=== PATIENT | male | born 1995 | race Caucasian/White ===

== ENCOUNTER 2018-10-01 11:16 | Emergency (ER) | payer MEDICAID ==
[~2018-10-01] VITALS: Ht 177.8 cm; Wt 77.3 kg
[2018-10-01] MEDS ORDERED: LIDOCAINE 1% 10 ML VIAL INJ ONE (12:15)
[2018-10-01 13:25] VITALS: BP 118/67
== END 2018-10-01 13:39 | disposition home or self-care (01) ==
LOC: EMS 11:17
DX: S01.111A Laceration without foreign body of right eyelid and periocular area, initial encounter (principal); W01.0XXA Fall on same level from slipping, tripping and stumbling without subsequent striking against object, initial encounter; Y93.89 Activity, other specified; Y92.89 Other specified places as the place of occurrence of the external cause; Y99.8 Other external cause status
CPT/HCPCS: 12011; 99283; J3490

== ENCOUNTER 2018-10-06 21:12 | Emergency (ER) | payer MEDICAID | END 2018-10-06 21:20 | disposition left against medical advice (07) | LOC: EMS 21:12 | DX: Z48.02 Encounter for removal of sutures (principal); Z53.21 Procedure and treatment not carried out due to patient leaving prior to being seen by health care provider ==

== ENCOUNTER 2018-12-11 14:44 | Emergency (ER) | payer SELFPAY ==
[~2018-12-11] VITALS: Ht 177.8 cm; Wt 77.3 kg
[2018-12-11 14:50] VITALS: BP 116/71
== END 2018-12-11 16:35 | disposition home or self-care (01) ==
LOC: EMS 14:45
DX: S63.602A Unspecified sprain of left thumb, initial encounter (principal); V00.131A Fall from skateboard, initial encounter; Y93.51 Activity, roller skating (inline) and skateboarding; Y92.89 Other specified places as the place of occurrence of the external cause; Y99.8 Other external cause status

== ENCOUNTER 2019-01-05 18:38 | Emergency (ER) | payer SELFPAY ==
[~2019-01-05] VITALS: Ht 177.8 cm; Wt 72.7 kg
[2019-01-05] MEDS ORDERED: BACITRACIN 0.9 GM PACKET OINTMENT TP ONE (20:30)
[2019-01-05 20:35] VITALS: BP 120/81
== END 2019-01-05 20:56 | disposition home or self-care (01) ==
LOC: EMS 18:39
DX: S90.822A Blister (nonthermal), left foot, initial encounter (principal); L08.9 Local infection of the skin and subcutaneous tissue, unspecified; F17.210 Nicotine dependence, cigarettes, uncomplicated; F12.90 Cannabis use, unspecified, uncomplicated; X58.XXXA Exposure to other specified factors, initial encounter; Y93.89 Activity, other specified; Y92.89 Other specified places as the place of occurrence of the external cause; Y99.8 Other external cause status

== ENCOUNTER 2019-07-15 15:42 | Emergency (ER) | payer MEDICAID ==
[~2019-07-15] VITALS: Ht 172.7 cm; Wt 72.7 kg
[2019-07-15] MEDS ORDERED: DiphenhydrAMINE HCL 50 MG/ML VIAL IVP ONE (16:00)
[2019-07-15] MEDS ORDERED: HALOPERIDOL LACTATE 5 MG/ML VIAL IM ONE (16:00)
[2019-07-15] MEDS ORDERED: LORazepam 2 MG/ML VIAL IVP ONE (16:00)
[2019-07-15 16:17] LABS: BASOPHILS % (AUTO) 0.6 % (0.0-2.0); EOSINOPHILS % (AUTO) 0.5 % (1.0-6.0); HEMATOCRIT 37.7 % (41-53); HEMOGLOBIN 12.7 g/dL (13.5-17.5); LYMPHOCYTES # (AUTO) 2.9 K/uL (1.0-4.8); LYMPHOCYTES % (AUTO) 21.5 % (22.0-44.0); MEAN CORPUSCULAR HEMOGLOBIN 29.1 pg (26.0-34.0); MEAN CORPUSCULAR HGB CONC 33.7 G/dL (31.0-37.0); MEAN CORPUSCULAR VOLUME 87 fL (80-100); MONOCYTES # (AUTO) 1.3 K/uL (0.1-1.0); MONOCYTES % (AUTO) 9.6 % (2.0-9.0); NEUTROPHILS # (AUTO) 9.3 K/uL (1.8-7.7); NEUTROPHILS % (AUTO) 67.8 % (40.0-70.0); PLATELET COUNT (AUTO) 229 K/uL (150-450); RED BLOOD CELL COUNT(AUTO) 4.36 MIL/uL (4.50-5.90); RED CELL DISTRIBUTION WIDTH 15.2 % (11.5-14.5)
[2019-07-15 16:26] LABS: ANION GAP 12 mmol/L (8-16); CALCIUM, TOTAL 9.1 mg/dL (8.8-10.5); CARBON DIOXIDE 24 mmol/L (22-29); CHLORIDE 94 mmol/L (98-107); CREATININE 1.15 mg/dL (0.60-1.30); GLOMERULAR FILTR. RATE CALC > 60 mL/min (>60); GLUCOSE,RANDOM 133 mg/dL (70-110); POTASSIUM 3.9 mmol/L (3.5-5.1); SODIUM SERUM 130 mmol/L (136-145); UREA NITROGEN, BLOOD 25 mg/dL (7-18)
[2019-07-15 16:47] LABS: B-TYPE NATRIURETIC PEPTIDE < 5 pg/mL (0-100)
[2019-07-15 16:59] LABS: ALANINE AMINOTRANSFERASE 32 U/L (12-78); ALBUMIN 3.8 g/dL (3.4-5.0); ALKALINE PHOSPHATASE 92 U/L (46-116); ASPARTATE AMINOTRANSFERASE 54 U/L (15-37); BILIRUBIN,TOTAL 1.4 mg/dL (0.1-1.0); TOTAL PROTEIN, SERUM 7.2 g/dL (6.4-8.2)
[2019-07-15 17:05] LABS: CREATINE KINASE, TOTAL ONLY 1724 U/L (39-308)
[2019-07-15] MEDS ORDERED: SODIUM CHLORIDE 0.9% 1,000 ML IV ONE ×2 (17:30)
[2019-07-15 17:38] LABS: SALICYLATE < 2.8 mg/dL (2.8-20.0)
[2019-07-15 18:05] LABS: ACETAMINOPHEN < 2 mcg/mL (10-30)
[2019-07-16 04:30] VITALS: BP 115/80
== END 2019-07-16 04:51 | disposition home or self-care (01) ==
LOC: EMS 15:42
DX: M62.82 Rhabdomyolysis (principal); T43.625A Adverse effect of amphetamines, initial encounter; F12.90 Cannabis use, unspecified, uncomplicated; F15.90 Other stimulant use, unspecified, uncomplicated; F11.90 Opioid use, unspecified, uncomplicated; Y92.89 Other specified places as the place of occurrence of the external cause
CPT/HCPCS: 36415; 71045; 80053; 82550; 83880; 84484; 85025; 93005; 96361; 96372; 96374; 96375; 99285; G0481; J1200; J1630; J2060; J7030; G0480

== ENCOUNTER 2019-07-28 10:52 | Emergency (ER) | payer MEDICAID ==
[~2019-07-28] VITALS: Ht 172.7 cm; Wt 72.7 kg
[2019-07-28] MEDS ORDERED: CefTRIAXone SODIUM 1 GM/VIAL IM ONE (11:45)
[2019-07-28] MEDS ORDERED: AZITHROMYCIN 250 MG TABLET PO ONE (11:45)
[2019-07-28] MEDS ORDERED: LIDOCAINE/PF 1% 2 ML VIAL IM ONE (11:45)
[2019-07-28 13:04] LABS: APPEARANCE,URINE TURBID (CLEAR); GLUCOSE, URINE (UA) NEGATIVE (NEGATIVE); KETONES,URINE TRACE mg/dL (NEGATIVE); LEUKOCYTE ESTERASE ,URINE LARGE (NEGATIVE); NITRATE,URINE NEGATIVE (NEGATIVE); OCCULT BLOOD,URINE MODERATE (NEGATIVE); PROTEIN,URINE SEE CONFIRM (NEGATIVE)
[2019-07-28 13:09] LABS: BILIRUBIN,URINE PRELIM. POSITIVE (NEGATIVE)
[2019-07-28 13:17] VITALS: BP 127/87
[2019-07-28 13:21] LABS: BACTERIA,URINE Few /HPF (None Seen); SQUAMOUS EPITHELIAL CELL,UR Few /LPF (None Seen); SULFOSALICYLIC ACID,URINE 2+ (Negative); WBC,URINE >100 /HPF (0-5)
== END 2019-07-28 13:48 | disposition home or self-care (01) ==
LOC: EMS 10:54
DX: A64 Unspecified sexually transmitted disease (principal); N34.2 Other urethritis; F17.210 Nicotine dependence, cigarettes, uncomplicated; F11.90 Opioid use, unspecified, uncomplicated; F12.90 Cannabis use, unspecified, uncomplicated; F15.90 Other stimulant use, unspecified, uncomplicated
CPT/HCPCS: 81001; 87086; 87491; 87591; 96372; 99283; 99406; J0696; J3490

== ENCOUNTER 2020-04-21 22:39 | Emergency (ER) | payer MEDICAID ==
[~2020-04-21] VITALS: Ht 177.8 cm; Wt 61.4 kg
[2020-04-22 00:32] VITALS: BP 141/75
== END 2020-04-22 01:15 | disposition left against medical advice (07) ==
LOC: EMS 22:39
DX: L03.114 Cellulitis of left upper limb (principal); F19.10 Other psychoactive substance abuse, uncomplicated; F17.210 Nicotine dependence, cigarettes, uncomplicated; F11.90 Opioid use, unspecified, uncomplicated; F12.90 Cannabis use, unspecified, uncomplicated

== ENCOUNTER 2021-06-14 18:20 | Emergency (ER) | payer MEDICAID ==
[~2021-06-14] VITALS: Ht 177.8 cm; Wt 68.2 kg
[2021-06-14 18:30] VITALS: BP 147/106
[2021-06-14] MEDS ORDERED: BACITRACIN 0.9 GM PACKET OINTMENT TP ONE (20:00)
== END 2021-06-14 20:50 | disposition home or self-care (01) ==
LOC: EMS 18:33
DX: S90.821A Blister (nonthermal), right foot, initial encounter (principal); S90.822A Blister (nonthermal), left foot, initial encounter; F15.10 Other stimulant abuse, uncomplicated; B00.1 Herpesviral vesicular dermatitis; F11.90 Opioid use, unspecified, uncomplicated; F12.90 Cannabis use, unspecified, uncomplicated; F17.210 Nicotine dependence, cigarettes, uncomplicated; X58.XXXA Exposure to other specified factors, initial encounter; Y93.89 Activity, other specified; Y92.89 Other specified places as the place of occurrence of the external cause; Y99.8 Other external cause status
CPT/HCPCS: 99283